=== PATIENT | female | born 1995 | race Caucasian/White ===

== ENCOUNTER 2018-10-15 22:50 | Inpatient (IN) | payer BC, OTHER ==
[~2018-10-15] VITALS: Ht 175.3 cm; Wt 104.5 kg
[2018-10-15 23:00] VITALS: BP 111/67; PULSE 74; RESP 16
[2018-10-16] MEDS ORDERED: PREN-19 PO (00:10)
--- NOTE | 2018-10-16 02:47 | HP ---
Date/Time of Note Date/Time of Note DATE: 10/16/18 TIME: 02:44 OB - History Hx of Present Chief Complaint: vaginal bleeding Estimated Due Date: Dec 03, 2018 : 1 Para: 0 Spontaneous : 0 Therapeutic : 0 Care: Other ( records not available) Ultrasounds: Abnormal US findings Abnormal Ultrasound Findings: CARLOS 4.9 Obstetrical Complications: None Medical Complications: None Past Family/Social History * Past Medical, Surgical, Family and Obstetric Histories reviewed from chart. OB Admission Exam Vital Signs Vital Signs Vital Signs Date Temp Pulse Resp B/P (MAP) Pulse Ox O2 O2 Flow FiO2 Time Delivery Rate 10/15/18 97.9 74 16 111/67 Room Air 23:00 (82) Physical Exam HEENT: WNL Heart: Rhythm Normal Lungs: Clear, Equal Abdomen: WNL Extremities: Normal Reflexes: Normal Heart Rate: 130's Accelerations: Accelerations Present Decelerations: No Decelerations Varibility: Moderate Last 72 hours Lab Results CBC & BMP 10/15/18 23:59 OB Assessment/Plan Reason for admission: other Other Assessment: oligohydramnios Plan: Other Other plan: Admit Evaluation for possible SROM IV hydration Repeat GIRISH LISA MD Oct 16, 2018 02:47
[2018-10-16] MEDS ORDERED: AL HYDROX/MG HYDROX/SIMETH 30 ML CUP PO PRN (03:00)
[2018-10-16] MEDS ORDERED: LACTATED RINGER'S 1,000 ML IV ONE (03:00)
[2018-10-16] MEDS ORDERED: ACETAMINOPHEN 325 MG TAB PO PRN (03:00)
--- NOTE | 2018-10-16 03:18 | TRIAGE ---
OB Triage Datetime Report Generated by CPN: 10/16/2018 03:18 Datetime: 10/16/2018 03:10 Stage of : Antepartum Datetime: 10/16/2018 03:00 Stage of : Antepartum Datetime: 10/16/2018 00:03 Stage of : OB Triage Labor Evaluation Monitor Mode: External Quality: Mild Pattern: Normal: <= 5 Contractions in 10 Minutes Resting Tone [place]: Relaxed Heart Rate FHR Baseline Rate: 140 Monitor Mode: External US Pain Assessment Pain Scale: 0 Pain Presence: None/Denies Pain Type: N/A Datetime: 10/15/2018 23:35 Stage of : OB Triage Labor Evaluation Monitor Mode: External Quality: Mild Pattern: Normal: <= 5 Contractions in 10 Minutes Resting Tone [place]: Relaxed Heart Rate FHR Baseline Rate: 135 Monitor Mode: External US FHR Baseline Changes: No Baseline Change Variability: Moderate 6-25 bpm Accelerations: 15X15 Decelerations: None Category: Category I Datetime: 10/15/2018 23:22 EGA: 33.0 Datetime: 10/15/2018 23:04 EGA: 33.0 Datetime: 10/15/2018 23:00 Time of Arrival: 10/15/2018 22:38 Arrived By: Ambulatory Arrived From: Home Chief Complaint: c/o sm amt dk blood on tissue when wiped [id number]. Denies pain or hx bleeding Movement: Present Contractions: Denies/Absent Rupture of Membranes: Denies Vaginal Bleeding: Small Vaginal Discharge: Present Recent Sexual Intercouse: Denies Abdominal Trauma: Not Applicable Patient Complaints: Other Time Provider Notified: 10/15/2018 23:35 Provider Notified: Dr Sherwood Initial Plan: EFW,BPP,CBC,UA Datetime: 10/15/2018 22:59 Stage of : OB Triage Maternal Assessment Level of Consciousness: Keenly Alert, Responsive Headache: Denies Blurred Vision: No Nausea/Vomiting: Denies RUQ Epigastric Pain: Denies Facial Edema: None Labor Evaluation Monitor Mode: External Resting Tone [place]: Relaxed Heart Rate FHR Baseline Rate: 140 Monitor Mode: External US Pain Assessment Pain Scale: 0 Pain Presence: None/Denies Pain Type: N/A
[2018-10-16] MEDS: LACTATED RINGER'S 1,000 ML IV SCH ×3 (05:36→18:11)
[2018-10-16] MEDS ORDERED: BETAMET NA PHOS/AC(6 MG/ML) 2 ML INJ SYG IM ONE (10:00)
[2018-10-16] MEDS: FERROUS SULFATE (EC) 325 MG TAB PO SCH (10:57)
[2018-10-16] MEDS: PRENATAL VITAMIN PO SCH (10:57)
--- NOTE | 2018-10-17 00:22 | PN ---
DATE: 10/16/2018 The patient is at 33 weeks and 1 day, admitted secondary to less 5 cm slightly above 4 cm. Aft er some IV hydration, CARLOS was slightly increased however still is below 5 cm. She has per report den ied any leakage of fluid. RECOMMENDATIONS: Continue with the IV hydration, in-house management unless CARLOS is 6 cm or above. C ontinuous heart tone monitoring and betamethasone administration. Dictated By: ROB BURNS MD [facility] Conf#: [id number] DID#: [id number] CC: DANIELLE HIGGINS MD;*EndCC*
[2018-10-17] MEDS: LACTATED RINGER'S 1,000 ML IV SCH ×2 (00:59→07:20)
[2018-10-17] MEDS ORDERED: BETAMET NA PHOS/AC(6 MG/ML) 2 ML INJ SYG IM ONE (11:30)
[2018-10-17] MEDS: PRENATAL VITAMIN PO SCH (12:31)
[2018-10-17] MEDS: FERROUS SULFATE (EC) 325 MG TAB PO SCH (12:31)
--- NOTE | 2018-10-17 12:42 | QN ---
Documentation Comment patient is seen by the bedside NST reassuring [place] CTXs Pelvic Deferred -->As per Perinatologist and Recent CARLOS she is discharged --->Questions answered --->precautions discussed --->Follow up with PRADEEP COPPOLA M.D. Oct 17, 2018 12:42
--- NOTE | 2018-10-17 12:42 | DS ---
Date/Time of Note Date/Time of Note DATE: 10/17/18 TIME: 12:42 Discharge Summary Admission/Discharge Info Admit Date/Time Oct 16, 2018 at 02:40 Discharge Date/Time 10/17/2018 Discharge Diagnosis Low CARLOS Patient Condition: Good Hospital Course uneventful Home Meds Reported Medications Vit #76/Iron,Carb/FA (Prenatabs Rx Tablet) 1 Each Tablet, 1 EACH PO DAILY, TAB 10/16/18 Primary Care Provider Care Physician No Primary PRADEEP STEVENSON M.D. Oct 17, 2018 12:42
== END 2018-10-17 13:35 | disposition home or self-care (01) | DRG 833 ==
LOC: OBT 22:50 → L-D 22:52 → OBT 10-16 02:40 → L-D 10-16 02:40
PROVIDERS: ADMIT Specialist; ATTEND Specialist
DX: O41.03X0 Oligohydramnios, third trimester, not applicable or unspecified (principal); Z3A.33 33 weeks gestation of pregnancy
CPT/HCPCS: 76815; 76818; 81001; 84112; 85025; 87086; G0463; J0702; J7120

== ENCOUNTER 2018-10-19 19:54 | Outpatient (CLI) | payer BC ==
[~2018-10-19] VITALS: Ht 175.3 cm; Wt 104.8 kg
[2018-10-19] MEDS ORDERED: FER325 PO (20:29)
[2018-10-19] MEDS ORDERED: PREN1TAB13 PO (20:29)
[2018-10-19 20:30] VITALS: Ht 175.3 cm; Wt 104.8 kg
[2018-10-19 20:45] VITALS: BP 110/55; PULSE 65; RESP 17
--- NOTE | 2018-10-19 22:07 | PN ---
Triage Information Date/Time October 19, 2018 Reason for visit: Oligohydramnios Weeks of Gestation 33w 4d /Para 1/0 Diabetes: none Hypertention: none Additional information CARLOS on 10/16 was 4.9, on 10/17 was 7.6 cm. Objective Vital Signs Date Temp Pulse Resp B/P (MAP) Pulse Ox O2 O2 Flow FiO2 Time Delivery Rate 10/19/18 98.1 65 17 110/55 Room Air 20:45 (73) Heart Rate: 130's Heart Rate Comments Accels to 180 BPM. No decels. Contractions: None Results/Medications Imaging Results CARLOS 11.5, VTX. Disposition: Discharge Assessment/Plan A: IUP at 33w 4d. H/o low CARLOS. P: D/c home. PT to continue hydration and frequent rests and is to return for a recheck in one week. Pt has an appt at the clinic 10/24 VENKATESH MONDRAGON MD Oct 19, 2018 22:06
--- NOTE | 2018-10-19 22:26 | TRIAGE ---
OB Triage Datetime Report Generated by CPN: 10/19/2018 22:25 Datetime: 10/19/2018 21:52 Labor Evaluation Frequency: none Monitor Mode: External (Annotations: removed) Heart Rate FHR Baseline Rate: 135 Monitor Mode: External US (Annotations: removed) Variability: Moderate 6-25 bpm Accelerations: 15X15 Comments: Appropriate for gestational age Datetime: 10/19/2018 21:30 Labor Evaluation Frequency: x1 Monitor Mode: External Duration (sec)2399: 40 Heart Rate FHR Baseline Rate: 130 Monitor Mode: External US Variability: Moderate 6-25 bpm Accelerations: 15X15 Decelerations: None Comments: Appropriate for gestation age Datetime: 10/19/2018 21:04 Resting Tone [place]: Relaxed Contraction Comments: No contractions palpated. Abdomen soft Datetime: 10/19/2018 20:45 Stage of : OB Triage Assessment Type: Triage Maternal Assessment Level of Consciousness: Keenly Alert, Responsive DTR's/Clonus: DTRs 2+; No Clonus Headache: Denies Blurred Vision: No Respiratory Effort: Unlabored; Regular Rhythm; Equal Expansion Breath Sounds, Left: Clear and Equal Breath Sounds, Right: Clear and Equal Nausea/Vomiting: Denies RUQ Epigastric Pain: Denies Lower Extremities Edema: None Degree: None Upper Extremities Edema: None Degree: None Facial Edema: None Temperature Route: Oral Fall Risk Assessment History of Falling: (0) No Secondary Diagnosis: (0) No Ambulatory Aid: (0) Bedrest/Nurse Assist IV Therapy: (0) No Gait: (0) Normal/Bedrest/Immobile Mental Status: (0) Oriented to Own Ability Fall Score: 0 Fall Risk Score Definition: No Risk: No action required Comments: Patient states she feels active movement. Pain Assessment Pain Scale: 0 Pain Presence: None/Denies Pain Type: N/A Datetime: 10/19/2018 20:44 Monitor Mode: External (Annotations: applied) Resting Tone [place]: Relaxed Contraction Comments: No contractions palpated Monitor Mode: External US (Annotations: applied) Datetime: 10/19/2018 19:50 Time of Arrival: 10/19/2018 19:50 EGA: 33.4 Arrived By: Ambulatory Arrived From: Home Chief Complaint: Orders for Repeat CARLOS Movement: Present Contractions: Denies/Absent Rupture of Membranes: Denies Vaginal Bleeding: None Vaginal Discharge: Denies Recent Sexual Intercouse: Denies Abdominal Trauma: Not Applicable Patient Complaints: Other Time Provider Notified: 10/19/2018 21:34 Provider Notified: Dr. Garland Initial Plan: NST, CARLOS Datetime: 10/17/2018 12:00 Labor Evaluation Frequency: 0 Monitor Mode: External Pattern: Normal: <= 5 Contractions in 10 Minutes Resting Tone [place]: Relaxed Heart Rate FHR Baseline Rate: 125 Monitor Mode: External US FHR Baseline Changes: No Baseline Change Variability: Moderate 6-25 bpm Accelerations: 15X15 Decelerations: None Category: Category I Datetime: 10/17/2018 11:00 Labor Evaluation Frequency: 0 Monitor Mode: External Pattern: Normal: <= 5 Contractions in 10 Minutes Resting Tone [place]: Relaxed Heart Rate FHR Baseline Rate: 125 Monitor Mode: External US FHR Baseline Changes: No Baseline Change Variability: Moderate 6-25 bpm Accelerations: 15X15 Decelerations: None Category: Category I Pain Presence: None/Denies Pain Type: N/A Datetime: 10/17/2018 10:00 Labor Evaluation Frequency: 0 Monitor Mode: External Pattern: Normal: <= 5 Contractions in 10 Minutes Resting Tone [place]: Relaxed Heart Rate FHR Baseline Rate: 125 Monitor Mode: External US FHR Baseline Changes: No Baseline Change Variability: Moderate 6-25 bpm Accelerations: 15X15 Decelerations: None Category: Category I Pain Assessment Pain Scale: 0 Pain Presence: None/Denies Pain Type: N/A Datetime: 10/17/2018 09:45 Temperature Route: Oral Datetime: 10/17/2018 09:00 Labor Evaluation Frequency: 0 Monitor Mode: External Quality: Mild Pattern: Normal: <= 5 Contractions in 10 Minutes Resting Tone [place]: Relaxed Heart Rate FHR Baseline Rate: 125 Monitor Mode: External US FHR Baseline Changes: No Baseline Change Variability: Moderate 6-25 bpm Accelerations: 15X15 Decelerations: None Category: Category I Pain Presence: None/Denies Pain Type: N/A Datetime: 10/17/2018 08:00 Labor Evaluation Frequency: 0 Monitor Mode: External Pattern: Normal: <= 5 Contractions in 10 Minutes Resting Tone [place]: Relaxed Heart Rate FHR Baseline Rate: 120 Monitor Mode: External US FHR Baseline Changes: No Baseline Change Variability: Moderate 6-25 bpm Accelerations: 15X15 Decelerations: None Category: Category I Datetime: 10/17/2018 07:47 Assessment Type: Admission Assessment Maternal Assessment Level of Consciousness: Keenly Alert, Responsive DTR's/Clonus: DTRs 2+; No Clonus Headache: Denies Blurred Vision: No Respiratory Effort: Unlabored; Regular Rhythm; Equal Expansion Breath Sounds, Left: Clear and Equal Breath Sounds, Right: Clear and Equal Nausea/Vomiting: Denies RUQ Epigastric Pain: Denies Lower Extremities Edema: None Upper Extremities Edema: None Facial Edema: None Temperature Route: Oral Fall Risk Assessment History of Falling: (0) No Secondary Diagnosis: (0) No Ambulatory Aid: (0) Bedrest/Nurse Assist IV Therapy: (20) Yes Gait: (0) Normal/Bedrest/Immobile Mental Status: (0) Oriented to Own Ability Fall Score: 20 Fall Risk Score Definition: No Risk: No action required Datetime: 10/17/2018 07:00 Stage of : Antepartum Maternal Assessment Level of Consciousness: Keenly Alert, Responsive Labor Evaluation Frequency: 0 Monitor Mode: External Resting [place]one [place]: Relaxed Heart Rate FHR Baseline Rate: 115 Monitor Mode: External US Variability: Moderate 6-25 bpm Accelerations: 15X15 Decelerations: None Pain Assessment Pain Scale: 0 Pain Goal: 0 Vaginal Exam Membrane Status: Intact Vaginal Bleeding: None Datetime: 10/17/2018 06:00 Stage of : Antepartum Maternal Assessment Level of Consciousness: Keenly Alert, Responsive Labor Evaluation Frequency: 0 Monitor Mode: External Resting [place]one [place]: Relaxed Heart Rate FHR Baseline Rate: 125 Monitor Mode: External US Variability: Moderate 6-25 bpm Accelerations: 15X15 Decelerations: None Pain Assessment Pain Scale: 0 Pain Goal: 0 Vaginal Exam Membrane Status: Intact Vaginal Bleeding: None Datetime: 10/17/2018 05:00 Stage of : Antepartum Maternal Assessment Level of Consciousness: Keenly Alert, Responsive Labor Evaluation Frequency: 0 Monitor Mode: External Resting [place]one [place]: Relaxed Heart Rate FHR Baseline Rate: 120 Monitor Mode: External US Variability: Moderate 6-25 bpm Accelerations: 15X15 Decelerations: None Pain Assessment Pain Scale: 0 Pain Goal: 0 Vaginal Exam Membrane Status: Intact Vaginal Bleeding: None Datetime: 10/17/2018 04:00 Stage of : Antepartum Maternal Assessment Level of Consciousness: Keenly Alert, Responsive Labor Evaluation Frequency: 0 Monitor Mode: External Resting [place]one [place]: Relaxed Heart Rate FHR Baseline Rate: 115 Monitor Mode: External US Variability: Moderate 6-25 bpm Accelerations: 15X15 Decelerations: None Pain Assessment Pain Scale: 0 Pain Goal: 0 Vaginal Exam Membrane Status: Intact Vaginal Bleeding: None Datetime: 10/17/2018 03:00 Stage of : Antepartum Maternal Assessment Level of Consciousness: Keenly Alert, Responsive Labor Evaluation Frequency: 0 Monitor Mode: External Resting [place]one [place]: Relaxed Heart Rate FHR Baseline Rate: 115 Monitor Mode: External US Variability: Moderate 6-25 bpm Accelerations: 15X15 Decelerations: None Pain Assessment Pain Scale: 0 Pain Goal: 0 Vaginal Exam Membrane Status: Intact Vaginal Bleeding: None Datetime: 10/17/2018 02:00 Stage of : Antepartum Maternal Assessment Level of Consciousness: Keenly Alert, Responsive Labor Evaluation Frequency: 0 Monitor Mode: External Resting [place]one [place]: Relaxed Heart Rate FHR Baseline Rate: 115 Monitor Mode: External US Variability: Moderate 6-25 bpm Accelerations: 15X15 Decelerations: None Pain Assessment Pain Scale: 0 Pain Goal: 0 Vaginal Exam Membrane Status: Intact Vaginal Bleeding: None Datetime: 10/17/2018 01:00 Stage of : Antepartum Maternal Assessment Level of Consciousness: Keenly Alert, Responsive Labor Evaluation Frequency: 0 Monitor Mode: External Resting [place]one [place]: Relaxed Heart Rate FHR Baseline Rate: 118 Monitor Mode: External US Variability: Moderate 6-25 bpm Accelerations: 15X15 Decelerations: None Pain Assessment Pain Scale: 0 Pain Goal: 0 Vaginal Exam Membrane Status: Intact Vaginal Bleeding: None Datetime: 10/17/2018 00:00 Stage of : Antepartum Maternal Assessment Level of Consciousness: Keenly Alert, Responsive Labor Evaluation Frequency: 0 Monitor Mode: External Resting [place]one [place]: Relaxed Heart Rate FHR Baseline Rate: 118 Monitor Mode: External US Variability: Moderate 6-25 bpm Accelerations: 15X15 Decelerations: None Pain Assessment Pain Scale: 0 Pain Goal: 0 Pain Assessment Comments: Pt sleeping, appears to not have wakened when entering the room. Vaginal Exam Membrane Status: Intact Vaginal Bleeding: None Datetime: 10/16/2018 22:51 Stage of : Antepartum Maternal Assessment Level of Consciousness: Keenly Alert, Responsive Temperature Route: Oral Labor Evaluation Frequency: 0 Monitor Mode: External Resting [place]one [place]: Relaxed Heart Rate FHR Baseline Rate: 118 Monitor Mode: External US Variability: Moderate 6-25 bpm Accelerations: 15X15 Decelerations: None Pain Assessment Pain Scale: 0 Pain Goal: 0 Vaginal Exam Membrane Status: Intact Vaginal Bleeding: None Datetime: 10/16/2018 21:30 Stage of : Antepartum Maternal Assessment Level of Consciousness: Keenly Alert, Responsive Labor Evaluation Frequency: 0 Monitor Mode: External Resting [place]one [place]: Relaxed Heart Rate FHR Baseline Rate: 118 Monitor Mode: External US Variability: Moderate 6-25 bpm Accelerations: 15X15 Decelerations: None Pain Assessment Pain Scale: 0 Pain Goal: 0 Vaginal Exam Membrane Status: Intact Vaginal Bleeding: None Datetime: 10/16/2018 20:30 Stage of : Antepartum Maternal Assessment Level of Consciousness: Keenly Alert, Responsive Labor Evaluation Frequency: 0 Monitor Mode: External Resting [place]one [place]: Relaxed Heart Rate FHR Baseline Rate: 120 Monitor Mode: External US Variability: Moderate 6-25 bpm Accelerations: 15X15 Decelerations: None Pain Assessment Pain Scale: 0 Pain Goal: 0 Vaginal Exam Membrane Status: Intact Vaginal Bleeding: None Datetime: 10/16/2018 19:34 Assessment Type: Ongoing Assessment Maternal Assessment Level of Consciousness: Keenly Alert, Responsive DTR's/Clonus: DTRs 2+; No Clonus Headache: Denies Blurred Vision: No Respiratory Effort: Unlabored; Regular Rhythm; Equal Expansion Breath Sounds, Left: Clear and Equal Breath Sounds, Right: Clear and Equal Nausea/Vomiting: Denies RUQ Epigastric Pain: Denies Lower Extremities Edema: None Upper Extremities Edema: None Facial Edema: None Temperature Route: Oral Fall Risk Assessment History of Falling: (0) No Secondary Diagnosis: (0) No Ambulatory Aid: (0) Bedrest/Nurse Assist IV Therapy: (20) Yes Gait: (0) Normal/Bedrest/Immobile Mental Status: (0) Oriented to Own Ability Fall Score: 20 Fall Risk Score Definition: No Risk: No action required Labor Evaluation Frequency: 0 Monitor Mode: External Resting [place]one [place]: Relaxed Heart Rate FHR Baseline Rate: 120 Monitor Mode: External US Variability: Moderate 6-25 bpm Accelerations: 15X15 Decelerations: None Pain Assessment Pain Scale: 0 Pain Goal: 0 Vaginal Exam Membrane Status: Intact Vaginal Bleeding: None Datetime: 10/16/2018 19:19 Comments: off duty, hand-off to Evita M RN Datetime: 10/16/2018 18:55 Labor Evaluation Frequency: 0 Resting [place]: Relaxed Heart Rate FHR Baseline Rate: 120 Monitor Mode: External US Variability: Moderate 6-25 bpm Accelerations: 15X15 Decelerations: None Category: Category I Datetime: 10/16/2018 17:15 Pain Assessment Pain Scale: 0 Pain Presence: None/Denies Pain Goal: 0 Datetime: 10/16/2018 16:52 Labor Evaluation Frequency: 0 Monitor Mode: External Resting [place]: Relaxed Heart Rate FHR Baseline Rate: 120 Monitor Mode: External US Variability: Moderate 6-25 bpm Accelerations: 15X15 Decelerations: None Category: Category I Datetime: 10/16/2018 16:15 Pain Assessment Pain Scale: 0 Pain Presence: None/Denies Pain Goal: 0 Datetime: 10/16/2018 16:13 Stage of : Antepartum Datetime: 10/16/2018 16:00 Labor Evaluation Frequency: 0 Monitor Mode: External Resting [place]: Relaxed Heart Rate FHR Baseline Rate: 120 Monitor Mode: External US Variability: Moderate 6-25 bpm Accelerations: 15X15 Decelerations: None Category: Category I Datetime: 10/16/2018 15:00 Labor Evaluation Frequency: 0 Monitor Mode: External Resting [place]: Relaxed Heart Rate FHR Baseline Rate: 125 Monitor Mode: External US Variability: Moderate 6-25 bpm Accelerations: 15X15 Decelerations: None Category: Category I Datetime: 10/16/2018 14:59 Pain Assessment Pain Scale: 0 Pain Presence: None/Denies Pain Goal: 0 Datetime: 10/16/2018 14:29 Pain Assessment Pain Scale: 0 Pain Presence: None/Denies Pain Goal: 0 Datetime: 10/16/2018 14:01 Labor Evaluation Frequency: 0 Resting [place]one [place]: Relaxed Heart Rate FHR Baseline Rate: 135 Monitor Mode: External US Variability: Moderate 6-25 bpm Accelerations: 15X15 Decelerations: None Category: Category I Datetime: 10/16/2018 13:59 Pain Assessment Pain Scale: 0 Pain Presence: None/Denies Pain Goal: 0 Datetime: 10/16/2018 13:55 Stage of : Antepartum Datetime: 10/16/2018 13:50 Stage of : Antepartum Datetime: 10/16/2018 13:29 Pain Assessment Pain Scale: 0 Pain Presence: None/Denies Pain Goal: 0 Datetime: 10/16/2018 12:55 Labor Evaluation Frequency: 0 Monitor Mode: External Resting [place]: Relaxed Heart Rate FHR Baseline Rate: 135 Heart Rate FHR Baseline Rate: 125 Monitor Mode: External US Variability: Moderate 6-25 bpm Accelerations: 15X15 Decelerations: None Category: Category I Datetime: 10/16/2018 12:29 Pain Assessment Pain Scale: 0 Pain Goal: 0 Datetime: 10/16/2018 11:59 Temperature Route: Oral Pain Assessment Pain Scale: 0 Pain Presence: None/Denies Pain Goal: 0 Datetime: 10/16/2018 11:34 Labor Evaluation Frequency: 0 Monitor Mode: External Resting [place]one [place]: Relaxed Heart Rate FHR Baseline Rate: 125 Monitor Mode: External US Variability: Moderate 6-25 bpm Accelerations: 15X15 Decelerations: None Category: Category I Datetime: 10/16/2018 11:29 Pain Assessment Pain Scale: 0 Pain Presence: None/Denies Pain Goal: 0 Datetime: 10/16/2018 11:00 Labor Evaluation Frequency: 0 Monitor Mode: External Resting [place]one [place]: Relaxed Heart Rate FHR Baseline Rate: 130 Monitor Mode: External US Variability: Moderate 6-25 bpm Accelerations: 15X15 Decelerations: None Category: Category I Datetime: 10/16/2018 10:29 Pain Assessment Pain Scale: 0 Pain Presence: None/Denies Pain Goal: 0 Datetime: 10/16/2018 10:00 Labor Evaluation Frequency: 0 Resting [place]one [place]: Relaxed Heart Rate FHR Baseline Rate: 130 Monitor Mode: External US Variability: Moderate 6-25 bpm Accelerations: 15X15 Decelerations: None Category: Category I Datetime: 10/16/2018 09:59 Pain Assessment Pain Scale: 0 Pain Presence: None/Denies Pain Goal: 0 Datetime: 10/16/2018 09:29 Pain Assessment Pain Scale: 0 Pain Presence: None/Denies Pain Goal: 0 Datetime: 10/16/2018 09:00 Labor Evaluation Frequency: 0 Monitor Mode: External Heart Rate FHR Baseline Rate: 125 Monitor Mode: External US Variability: Moderate 6-25 bpm Accelerations: 15X15 Decelerations: None Category: Category I Datetime: 10/16/2018 08:59 Pain Assessment Pain Scale: 0 Pain Presence: None/Denies Pain Goal: 0 Datetime: 10/16/2018 08:29 Pain Assessment Pain Scale: 0 Pain Presence: None/Denies Pain Goal: 0 Datetime: 10/16/2018 08:00 Labor Evaluation Frequency: 0 Monitor Mode: External Heart Rate FHR Baseline Rate: 130 Monitor Mode: External US Variability: Moderate 6-25 bpm Accelerations: 15X15 Decelerations: None Category: Category I Datetime: 10/16/2018 07:59 Pain Assessment Pain Scale: 0 Pain Goal: 0 Datetime: 10/16/2018 07:55 Maternal Assessment Level of Consciousness: Keenly Alert, Responsive DTR's/Clonus: DTRs 2+; No Clonus Headache: Denies Blurred Vision: No Respiratory Effort: Unlabored; Regular Rhythm; Equal Expansion Breath Sounds, Left: Clear and Equal Breath Sounds, Right: Clear and Equal Nausea/Vomiting: Denies RUQ Epigastric Pain: Denies Lower Extremities Edema: None Upper Extremities Edema: None Facial Edema: None Fall Risk Assessment History of Falling: (0) No Secondary Diagnosis: (0) No Ambulatory Aid: (0) Bedrest/Nurse Assist IV Therapy: (20) Yes Gait: (0) Normal/Bedrest/Immobile Mental Status: (0) Oriented to Own Ability Fall Score: 20 Fall Risk Score Definition: No Risk: No action required Datetime: 10/16/2018 07:46 Maternal Assessment Level of Consciousness: Keenly Alert, Responsive Headache: Denies Blurred Vision: No Nausea/Vomiting: Denies RUQ Epigastric Pain: Denies Facial Edema: None Pain Assessment Pain Scale: 0 Pain Presence: None/Denies Pain Type: N/A Pain Goal: 0 Datetime: 10/16/2018 07:30 Labor Evaluation Frequency: 0 Monitor Mode: External Heart Rate FHR Baseline Rate: 145 Monitor Mode: External US Variability: Moderate 6-25 bpm Accelerations: 15X15 Decelerations: None Category: Category I Datetime: 10/16/2018 07:04 Monitor Mode: External Monitor Mode: External US Datetime: 10/16/2018 06:55 Stage of : Antepartum Labor Evaluation Frequency: 0 Monitor Mode: External Pattern: Normal: <= 5 Contractions in 10 Minutes Resting Tone [place]: Relaxed Heart Rate FHR Baseline Rate: 135 Monitor Mode: External US Variability: Moderate 6-25 bpm Accelerations: 15X15 Decelerations: None Category: Category I Datetime: 10/16/2018 06:37 Vaginal Exam Membrane Status: Intact Datetime: 10/16/2018 06:00 Stage of : Antepartum Labor Evaluation Frequency: 0 Monitor Mode: External Pattern: Normal: <= 5 Contractions in 10 Minutes Resting Tone [place]: Relaxed Heart Rate FHR Baseline Rate: 130 Monitor Mode: External US Variability: Moderate 6-25 bpm Accelerations: 15X15 Decelerations: None Category: Category I Comments: occassional loss of contact Datetime: 10/16/2018 05:15 Stage of : Antepartum Labor Evaluation Frequency: 0 Monitor Mode: External Pattern: Normal: <= 5 Contractions in 10 Minutes Resting Tone [place]: Relaxed Heart Rate FHR Baseline Rate: 130 Monitor Mode: External US Variability: Moderate 6-25 bpm Accelerations: 15X15 Decelerations: None Category: Category I Datetime: 10/16/2018 04:59 Stage of : Antepartum Temperature Route: Oral Datetime: 10/16/2018 04:55 Monitor Mode: External Monitor Mode: External US Datetime: 10/16/2018 04:45 Monitor Mode: External Monitor Mode: External US Datetime: 10/16/2018 04:00 Stage of : Antepartum Labor Evaluation Frequency: 0 Monitor Mode: External Pattern: Normal: <= 5 Contractions in 10 Minutes Resting Tone [place]: Relaxed Heart Rate FHR Baseline Rate: 120 Monitor Mode: External US Variability: Moderate 6-25 bpm Accelerations: 15X15 Decelerations: None Category: Category I Datetime: 10/16/2018 03:34 Assessment Type: Admission Assessment Time of Arrival: 10/16/2018 05:53 EGA: 33.1 Arrived By: Ambulatory Arrived From: Home Movement: Decreased Contractions: Denies/Absent Rupture of Membranes: Denies Vaginal Bleeding: None Vaginal Discharge: Present Recent Sexual Intercouse: Denies Abdominal Trauma: Not Applicable Patient Complaints: Other Maternal Assessment Level of Consciousness: Keenly Alert, Responsive DTR's/Clonus: DTRs 1+; No Clonus Headache: Denies Blurred Vision: No Respiratory Effort: Unlabored; Regular Rhythm; Equal Expansion Breath Sounds, Left: Clear and Equal Breath Sounds, Right: Clear and Equal Nausea/Vomiting: Denies RUQ Epigastric Pain: Denies Lower Extremities Edema: None Degree: None Upper Extremities Edema: None Degree: None Facial Edema: None Fall Risk Assessment History of Falling: (0) No Secondary Diagnosis: (0) No Ambulatory Aid: (0) Bedrest/Nurse Assist IV Therapy: (0) No Gait: (0) Normal/Bedrest/Immobile Mental Status: (0) Oriented to Own Ability Fall Score: 0 Fall Risk Score Definition: No Risk: No action required Pain Assessment Pain Scale: 0 Pain Presence: None/Denies Pain Type: N/A Pain Goal: 2 Datetime: 10/16/2018 03:33 Monitor Mode: External Monitor Mode: External US Datetime: 10/16/2018 02:40 Stage of : OB Triage Monitor Mode: External US FHR Baseline Changes: No Baseline Change Variability: Moderate 6-25 bpm Accelerations: 15X15 Decelerations: None Category: Category I Pain Presence: None/Denies Pain Type: N/A Datetime: 10/16/2018 02:05 Stage of : OB Triage Datetime: 10/16/2018 01:45 Stage of : OB Triage Monitor Mode: External Quality: Mild Pattern: Normal: <= 5 Contractions in 10 Minutes Resting Tone [place]: Relaxed Heart Rate FHR Baseline Rate: 120 Monitor Mode: External US FHR Baseline Changes: No Baseline Change Variability: Moderate 6-25 bpm Accelerations: 15X15 Decelerations: None Category: Category I Datetime: 10/16/2018 00:57 Stage of : OB Triage Monitor Mode: External Pattern: Normal: <= 5 Contractions in 10 Minutes Resting Tone [place]: Relaxed Heart Rate FHR Baseline Rate: 125 Monitor Mode: External US FHR Baseline Changes: No Baseline Change Variability: Moderate 6-25 bpm Accelerations: 15X15 Decelerations: None Category: Category I Pain Assessment Pain Scale: 0 Pain Presence: None/Denies Pain Type: N/A Datetime: 10/15/2018 23:22 Time of Arrival: 10/16/2018 02:40 EGA: 33.1 Arrived By: Ambulatory Arrived From: Home Datetime: 10/15/2018 23:04 EGA: 33.0
== END 2018-10-19 22:01 | disposition home or self-care (01) ==
LOC: OBT 19:54 → L-D 19:55 → OBT 22:01
PROVIDERS: ATTEND Specialist
DX: O41.03X0 Oligohydramnios, third trimester, not applicable or unspecified (principal); Z3A.33 33 weeks gestation of pregnancy
CPT/HCPCS: 76815; Z7500; G0463